=== PATIENT | female | born 1995 | race Caucasian/White ===

== ENCOUNTER → 2023-03-27 07:58 | Outpatient (CLI) | payer OTHER, SELFPAY ==
[2023-03-27 19:21] LABS: Amphetamine/Metha Screen,Urine Positive ng/ml (<1000); Barbiturates Screen,Urine Negative ng/ml (<200)
[2023-03-27 19:22] LABS: Benzodiazepines Screen,Urine Negative ng/ml (<200)
[2023-03-27 19:23] LABS: Cannabinoid Screen,Urine Negative ng/ml (<50); Cocaine Screen,Urine Negative ng/ml (<300)
[2023-03-27 19:24] LABS: Methadone Screen,Urine Negative ng/ml (<300)
[2023-03-27 19:28] LABS: Opiate Screen,Urine Negative ng/ml (<300)
[2023-03-27 19:35] LABS: Phencyclidine Screen,Urine Negative ng/ml (<25)
== END ==
LOC: LAB.DROPOF 03-28 07:59
PROVIDERS: PCP Family Medicine; Visit Provider Nurse Practitioner Psychiatric/Mental Health
DX: Z91.89 Other specified personal risk factors, not elsewhere classified (principal); Z79.899 Other long term (current) drug therapy
CPT/HCPCS: 80307